=== PATIENT | male | born 1955 | race Caucasian/White ===

== ENCOUNTER 2023-10-16 06:15 | Observation (INO) ==
[2023-10-16] MEDS ORDERED: Tranexamic Acid 1 GM/100ML BAG 2,000 MG/200 ML BAG IV ONE (06:44)
[2023-10-16] MEDS ORDERED: ceFAZolin 2 GM in NS PREMIX 2 GM/100 ML BAG IVPB ONE (06:45)
[2023-10-16] MEDS ORDERED: Propofol 10 MG/ML 20 ML BTL ONE ×2 (07:00→08:49)
[2023-10-16 07:43] LABS: Rapid COVID-19 Molecular Undetected (Undetected)
[2023-10-16] MEDS ORDERED: ROPIVACAINE 5 MG/ML 30 ML BTL (0.5%) ONE ×2 (08:12→08:57)
[2023-10-16] MEDS ORDERED: Midazolam 2 mg/2 ml VIAL 1 mg/ml 2 ml VIAL (2 mg) ONE (08:17)
[2023-10-16] MEDS ORDERED: Lidocaine 2% PF 5 ML VIAL ONE (08:49)
[2023-10-16] MEDS ORDERED: Naloxone 0.4 mg VIAL 0.4 mg/ml 1 ml VIAL IV PRN (09:03)
[2023-10-16] MEDS ORDERED: fentaNYL 100 mcg/2 ml 50 MCG/ML VIAL ONE ×2 (09:06→10:02)
[2023-10-16] MEDS ORDERED: Dexamethasone IV 4 MG/ML VIAL 1 ml VIAL ONE (09:48)
[2023-10-16] MEDS ORDERED: Ondansetron 4 mg VIAL 2 MG/ML 2 ml VIAL ONE (09:48)
[2023-10-16] MEDS ORDERED: Ondansetron ODT 4 mg TAB 4 MG TAB PO PRN (10:28)
[2023-10-16] MEDS ORDERED: Morphine 2 MG/ML SYRINGE IV PRN (10:28)
[2023-10-16] MEDS ORDERED: Magnesium Hydroxide LIQ 30 ML UDC PO PRN (10:28)
[2023-10-16] MEDS ORDERED: Lactulose 30 ml UDC PO PRN (10:28)
[2023-10-16] MEDS: Lactated Ringers 1000 ml BAG 1,000 ML IV SCH ×2 (11:51→14:37)
[2023-10-16] MEDS: Buffered Lidocaine 1% SYRIN 1 ml INTRADERM ONE (11:51)
[2023-10-16] MEDS ORDERED: HYDROmorphone 1 MG/1 ML SYRINGE ONE ×2 (12:50→13:57)
[2023-10-16] MEDS: HYDROmorphone 1 MG/1 ML SYRINGE IV PRN (12:52)
[2023-10-16] MEDS: ceFAZolin 1 GM ADVAN 1 GM in NS 0.9% 50 ML 50 ML IVPB SCH (16:23)
[2023-10-16] MEDS: Ondansetron 4 mg VIAL 2 MG/ML 2 ml VIAL IV PRN (17:28)
[2023-10-16 17:55] VITALS: BP 147/79
[2023-10-16] MEDS ORDERED: Magnesium Hydroxide LIQ 30 ML UDC PO SCH (21:00)
[2023-10-17] MEDS ORDERED: Vitamin THERAPEUTIC TAB PO SCH (09:00)
== END 2023-10-16 18:25 | disposition home or self-care (01) ==
LOC: SSU 06:15 → OR 06:15
PROVIDERS: ADMIT Orthopaedic Surgery Adult Reconstructive Orthopaedic Surgery; ATTEND Orthopaedic Surgery Adult Reconstructive Orthopaedic Surgery